=== PATIENT | male | born 1990 | race Caucasian/White ===

== ENCOUNTER 2017-02-19 11:32 | Emergency (ER) | payer SELFPAY ==
--- NOTE | 2017-02-19 13:41 | RADIOLOGY REPORT (SQ) ---
EXAM DESCRIPTION: CHEST PA/LAT COMPLETED DATE/TIME: 02/19/2017 1:29 pm REASON FOR STUDY: sob COMPARISON: None. EXAM PARAMETERS: NUMBER OF VIEWS: two views TECHNIQUE: Digital Frontal and Lateral radiographic views of the chest acquired. RADIATION DOSE: NA LIMITATIONS: none FINDINGS: LUNGS AND PLEURA: No opacities, masses or pneumothorax. No pleural effusion. MEDIASTINUM AND HILAR STRUCTURES: No masses or contour abnormalities. HEART AND VASCULAR STRUCTURES: Heart normal size. No evidence for failure. BONES: No acute findings. HARDWARE: None in the chest. OTHER: No other significant finding. IMPRESSION: NO SIGNIFICANT RADIOGRAPHIC FINDING IN THE CHEST. TECHNICAL DOCUMENTATION: JOB ID: [id number] [employer]- All Rights Reserved
[2017-02-19 13:50] LABS: APPEARANCE,URINE CLEAR; BILIRUBIN,URINE NEGATIVE (NEGATIVE); GLUCOSE, URINE NEGATIVE (NEGATIVE); KETONES,URINE NEGATIVE (NEGATIVE); LEUKOCYTE ESTERASE,URINE NEGATIVE (NEGATIVE); NITRITE,URINE NEGATIVE (NEGATIVE); PROTEIN,URINE NEGATIVE (NEGATIVE); URINE SPECIFIC GRAVITY 1.002; UROBILINOGEN,URINE NEGATIVE mg/dL (<2.0)
[2017-02-19 14:17] LABS: URINE BARBITURATES SCREEN NEGATIVE; URINE METHADONE SCREEN NEGATIVE; URINE OPIATES LOW NEGATIVE; URINE PHENCYCLIDINE SCREEN NEGATIVE
[2017-02-19 14:22] LABS: ABSOLUTE EOSINOPHILS # (AUTO) 0.3 10^3/uL (0.0-0.6); ABSOLUTE LYMPHOCYTES (AUTO) 1.6 10^3/uL (0.5-4.7); ABSOLUTE NEUT (AUTO) 6.4 10^3/uL (1.7-8.2); BASOPHILS % (AUTO) 0.3 % (0-2); EOSINOPHILS % (AUTO) 2.9 % (0-6); HEMATOCRIT 35.9 % (37.9-51.0); HEMOGLOBIN 12.5 g/dL (13.5-17.0); HGB HCT DIFFERENCE 1.6; LYMPHOCYTES % (AUTO) 17.4 % (13-45); MEAN CORPUSCULAR HEMOGLOBIN 33.9 pg (27.0-33.4); MEAN CORPUSCULAR HGB CONC 34.8 g/dL (32.0-36.0); MEAN CORPUSCULAR VOLUME 98 fl (80-97); MONOCYTES % (AUTO) 10.4 % (3-13); RED BLOOD COUNT 3.68 10^6/uL (4.35-5.55); RED CELL DISTRIBUTION WIDTH 14.3 % (11.5-14.0); WHITE BLOOD COUNT 9.3 10^3/uL (4.0-10.5)
[2017-02-19 14:49] LABS: ALANINE AMINOTRANSFERASE 31 U/L (21-72); ALBUMIN 4.7 g/dL (3.5-5.0); ALKALINE PHOSPHATASE 95 U/L (38-126); ANION GAP 14 (5-19); ASPARTATE AMINO TRANSFERASE 19 U/L (17-59); BILIRUBIN,DIRECT 0.4 mg/dL (0.0-0.4); BILIRUBIN,TOTAL 0.5 mg/dL (0.2-1.3); BLOOD UREA NITROGEN 7 mg/dL (7-20); CALCIUM 10.2 mg/dL (8.4-10.2); CARBON DIOXIDE 24 mmol/L (22-30); CHLORIDE 105 mmol/L (98-107); CREATINE KINASE 93 U/L (55-170); GLUCOSE 100 mg/dL (75-110); POTASSIUM 4.3 mmol/L (3.6-5.0); SODIUM 143.2 mmol/L (137-145); TOTAL PROTEIN 7.9 g/dL (6.3-8.2)
[2017-02-19 15:27] LABS: CREATINE KINASE MB 1.14 ng/mL (<4.55)
[2017-02-19 15:28] LABS: TROPONIN I < 0.012 ng/mL
--- NOTE | 2017-02-19 15:41 | ER Document Report ---
ED General - General Chief Complaint: Chest Pain Stated Complaint: CHEST PAIN Time Seen by Provider: 02/19/17 12:42 TRAVEL OUTSIDE OF THE U.S. IN LAST 30 DAYS: No - HPI Patient complains to provider of: Chest pain right-sided Notes: Patient coming in for evaluation chest pain mostly substernal right-sided states ongoing for the last 24 hours. Denies any trauma denies any fevers chills nausea vomiting patient is a smoker. Patient denies any recent travel. Patient is holding the middle and right side of his chest upon my evaluation. Denies any past medical history. - Related Data Allergies/Adverse Reactions: No Known Allergies Allergy (Verified 02/19/17 15:43) Past Medical History - Social History Smoking Status: Current Every Day Smoker Chew tobacco use (# tins/day): No Frequency of alcohol use: Rare Drug Abuse: None Family History: Reviewed & Not Pertinent Renal/ Medical History: Denies: Hx Peritoneal Dialysis Surgical Hx: Negative - Immunizations Hx Diphtheria, Pertussis, Tetanus Vaccination: No Review of Systems - Review of Systems Constitutional: No symptoms reported EENT: No symptoms reported Cardiovascular: Chest pain Respiratory: No symptoms reported Gastrointestinal: No symptoms reported Genitourinary: No symptoms reported Male Genitourinary: No symptoms reported Musculoskeletal: No symptoms reported Skin: No symptoms reported Hematologic/Lymphatic: No symptoms reported Neurological/Psychological: No symptoms reported -: Yes All other systems reviewed and negative Physical Exam - Vital signs Vitals: Temp Pulse Resp BP Pulse Ox 98.7 F 98 18 112/73 95 02/19/17 11:37 02/19/17 11:37 02/19/17 11:37 02/19/17 11:37 02/19/17 11:37 Interpretation: Normal - General General appearance: Appears well, Alert - HEENT Head: Normocephalic, Atraumatic Eyes: Normal Pupils: PERRL - Respiratory Respiratory status: No respiratory distress Chest status: Nontender Breath sounds: Normal Chest palpation: Normal - Cardiovascular Rhythm: Regular Heart sounds: Normal auscultation Murmur: No - Abdominal Inspection: Normal Distension: No distension Bowel sounds: Normal Tenderness: Nontender Organomegaly: No organomegaly - Back Back: Normal, Nontender - Extremities General upper extremity: Normal inspection, Nontender, Normal color, Normal ROM , Normal temperature General lower extremity: Normal inspection, Nontender, Normal color, Normal ROM , Normal temperature, Normal weight bearing. No: Mark's sign - Neurological Neuro grossly intact: Yes Cognition: Normal Orientation: AAOx4 Martha Coma Scale Eye Opening: Spontaneous [place] Coma Scale Verbal: Oriented [place] Coma Scale Motor: Obeys Commands Martha Coma Scale Total: 15 Speech: Normal Motor strength normal: LUE, RUE, LLE, RLE Sensory: Normal - Psychological Associated symptoms: Normal affect, Normal mood - Skin Skin Temperature: Warm Skin Moisture: Dry Skin Color: Normal Course - Re-evaluation Re-evalutation: 02/19/17 20:03 The patient has atypical chest pain as the patient's chest pain is not suggestive of pulmonary embolus, cardiac ischemia, aortic dissection, or other serious etiology. Given the extremely low risk of these diagnoses further testing and evaluation for these possibilities does not appear to be indicated at this time. The patient has been instructed to return if the symptoms worsen or change in any way. More consistent with chest wall pain. Will discharge patient home - Vital Signs Vital signs: Temp Pulse Resp BP Pulse Ox 97.3 F 84 20 112/71 94 02/19/17 15:43 02/19/17 15:43 02/19/17 15:43 02/19/17 15:43 02/19/17 15:43 - Laboratory Result Diagrams: 02/19/17 14:05 02/19/17 14:05 Laboratory results interpreted by me: 02/19/17 14:05 RBC 3.68 L Hgb 12.5 L Hct 35.9 L MCV 98 H MCH 33.9 H RDW 14.3 H Procedures - Additional Procedures Ultrasound blood draw Notes: 02/19/17 20:04 Using ultrasound vein was found antecubital region of the left arm cleaned with alcohol with successful blood draw with a 22-gauge butterfly needle Discharge - Discharge Clinical Impression: Chest wall pain Condition: Good Disposition: HOME, SELF-CARE Instructions: Anti-Inflammatory Medication ([facility]), Chest Wall Pain ([facility]), Reflux Disease (GERD) ([facility]) Additional Instructions: Evaluation does not show any signs of significant pathology. There is no signs of pneumonia heart damage or significant infection. Please follow-up with your primary care physician. Return to ER symptoms worsen. Take medications as prescribed. Prescriptions: Ketorolac Tromethamine [Toradol 10 mg Tablet] 10 mg PO Q8HP PRN #30 tablet PRN Reason:
[2017-02-19 15:45] VITALS: BP 112/71
--- NOTE | 2017-02-19 20:18 | EKG REPORT ---
SEVERITY:- OTHERWISE NORMAL ECG - SINUS TACHYCARDIA : Confirmed by: Roya Layne MD 19-Feb-2017 20:16:59
== END 2017-02-19 15:57 | disposition home or self-care (01) ==
LOC: ER 11:32
DX: R07.89 Other chest pain (principal); F17.200 Nicotine dependence, unspecified, uncomplicated
CPT/HCPCS: 36415; 71020; 80053; 80307; 81001; 82550; 82553; 84484; 85025; 93005; 93010; 99285

== ENCOUNTER 2017-09-22 16:41 | Emergency (ER) | payer SELFPAY ==
[2017-09-22 16:52] VITALS: BP 108/66
[2017-09-22] MEDS ORDERED: KETOROLAC TROMETHAMINE 60 MG/2 ML SDV IM ONE (17:25)
--- NOTE | 2017-09-22 17:40 | ER Document Report ---
ED Extremity Problem, Upper - General Chief Complaint: R arm pain, no known injury Stated Complaint: RIGHT ARM PAIN Time Seen by Provider: 09/22/17 17:18 Information source: Patient TRAVEL OUTSIDE OF THE [place] IN LAST 30 DAYS: No - HPI Notes: 27-year-old male presents emergency department for evaluation of right shoulder pain 1 week. Patient reports that he has been lifting heavy wood at work. He also reports yesterday that he hit his shoulder on the side of the wall. Patient reports some decreased range of motion secondary to pain. He denies any numbness or weakness to the extremity. He denied any other injuries. He also denied any fever, rash, chest pain, shortness of breath, abdominal pain, nausea, vomiting, diarrhea, dysuria, hematuria. - Related Data Allergies/Adverse Reactions: No Known Allergies Allergy (Verified 02/19/17 15:43) Past Medical History - Social History Smoking Status: Current Every Day Smoker Chew tobacco use (# tins/day): No Frequency of alcohol use: None Drug Abuse: None Family History: Reviewed & Not Pertinent Patient has suicidal ideation: No Patient has homicidal ideation: No Renal/ Medical History: Denies: Hx Peritoneal Dialysis - Immunizations Hx Diphtheria, Pertussis, Tetanus Vaccination: No Physical Exam - Vital signs Vitals: Temp Pulse Resp BP Pulse Ox 99.2 F 84 18 108/66 96 09/22/17 16:50 09/22/17 16:50 09/22/17 16:50 09/22/17 16:50 09/22/17 16:50 - Notes Notes: PHYSICAL EXAMINATION: GENERAL: Well-appearing, well-nourished and in no acute distress. HEAD: Atraumatic, normocephalic. Musculoskeletal: Right shoulder: There is a small abrasion with small area of ecchymosis to the lateral shoulder. No gross deformity, swelling, edema, or hot to the touch. Decreased abduction secondary to pain, otherwise full range of motion. 5\5 bilaterally. Strong radial pulse with brisk capillary refill. Light sensation intact. Distal neurovascular intact. NEUROLOGICAL: Normal gait, balance, speech, and facial symmetry. PSYCH: Normal mood, normal affect. SKIN: Warm, Dry, normal turgor, no rashes or lesions noted. Course - Re-evaluation Re-evalutation: 09/22/17 17:44 Consistent with right shoulder contusion with mild abrasion. No evidence of dislocation or fracture. The likelihood of other entities in the differential is insufficient to justify any further testing for them. I discussed care plan at length with patient. Any and all questions were answered. Patient was given Toradol and felt better. Discharged home with naproxen and sling. Advised patient to follow-up with PCP and take medications as instructed. I also advised him to return immediately to the emergency department for any new, worsening, or concerning symptoms as discussed. He understand and agree with plan. - Vital Signs Vital signs: Temp Pulse Resp BP Pulse Ox 99.2 F 84 18 108/66 96 09/22/17 16:50 09/22/17 16:50 09/22/17 16:50 09/22/17 16:50 09/22/17 16:50 Discharge - Discharge Clinical Impression: Contusion of right shoulder Qualifiers: Encounter type: initial encounter Qualified Code(s): S40.011A - Contusion of right shoulder, initial encounter Condition: Good Disposition: HOME, SELF-CARE Instructions: Family Physicians / Practices, Shoulder Injury ([facility]), Sling as Treatment ([facility]) Additional Instructions: Please follow-up with PCP and take medications as instructed. Return immediately to the emergency department for any new, worsening, or concerning symptoms as discussed. Prescriptions: Naproxen 500 mg PO Q12 #30 tablet
== END 2017-09-22 18:04 | disposition home or self-care (01) ==
LOC: ER 16:41
DX: S40.011A Contusion of right shoulder, initial encounter (principal); M79.601 Pain in right arm; W22.01XA Walked into wall, initial encounter; F17.200 Nicotine dependence, unspecified, uncomplicated
CPT/HCPCS: 99283; 96372; J1885

== ENCOUNTER 2018-08-02 17:48 | Emergency (ER) | payer SELFPAY ==
[2018-08-02] MEDS ORDERED: LIDOCAINE 2% VISCOUS SOLN 20 ML UDCUP PO ONE (19:32)
[2018-08-02] MEDS ORDERED: PENICILLIN V POTASSIUM 500 MG TABLET PO ONE (19:32)
--- NOTE | 2018-08-02 19:39 | ER Document Report ---
ED Oral Problem - General Chief Complaint: Facial Swelling Stated Complaint: FACE SWELLING Time Seen by Provider: 08/02/18 19:19 Mode of Arrival: Ambulatory Information source: Patient Notes: 28-year-old male presents to ED for complaint of dental pain to his left lower jaw with swelling to his left cheek 9-10 days. He states he has had bad teeth for a long time but he noticed some mild swelling to his left cheek with increased pain to his left lower jaw. He is alert oriented respirations regular and unlabored speaking in full sentences. He states his been using Motrin with no improvement. He is in no acute distress at this time. 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 He does smoke a pack a day. TRAVEL OUTSIDE OF THE [place] IN LAST 30 DAYS: No - HPI Patient complains to provider of: Swelling of face, Toothache - It is most likely resorption of a bruise. Is under skin. Both of these conditions are benign, severe pain out of proportion to movement Onset: Other - 9-10 days Onset: Gradual Quality of pain: Achy Severity: Moderate Pain Level: 2 Associated symptoms: Facial pain, Jaw pain, Toothache Worsened by: Cold Relieved by: Nothing Similar symptoms previously: Yes Recently seen / treated by doctor/dentist: No - Related Data Allergies/Adverse Reactions: No Known Allergies Allergy (Verified 08/02/18 18:10) Past Medical History - General Information source: Patient - Social History Smoking Status: Current Every Day Smoker Cigarette use (# per day): Yes - Pack per day Chew tobacco use (# tins/day): No Smoking Education Provided: Yes - Minutes Frequency of alcohol use: None Drug Abuse: None - Dates he has been clean for 5 years Occupation: [employer] Lives with: Family Family History: Reviewed & Not Pertinent Patient has suicidal ideation: No Patient has homicidal ideation: No - Past Medical History Cardiac Medical History: Reports: None Pulmonary Medical History: Reports: None EENT Medical History: Reports: None Neurological Medical History: Reports: None Endocrine Medical History: Reports: None Renal/ Medical History: Reports: None Malignancy Medical History: Reports None GI Medical History: Reports: None Musculoskeletal Medical History: Reports None Skin Medical History: Reports None Psychiatric Medical History: Reports: None Traumatic Medical History: Reports: None Infectious Medical History: Reports: None Surgical Hx: Negative Past Surgical History: Reports: None - Immunizations Hx Diphtheria, Pertussis, Tetanus Vaccination: No Review of Systems - Review of Systems Constitutional: No symptoms reported EENT: Mouth pain, Mouth swelling, Dental problem Cardiovascular: No symptoms reported Respiratory: No symptoms reported Gastrointestinal: No symptoms reported Genitourinary: No symptoms reported Male Genitourinary: No symptoms reported Musculoskeletal: No symptoms reported Skin: No symptoms reported Hematologic/Lymphatic: No symptoms reported Neurological/Psychological: No symptoms reported -: Yes All other systems reviewed and negative Physical Exam - Vital signs Vitals: Temp Pulse Resp BP Pulse Ox 98.4 F 86 14 129/75 H 96 08/02/18 18:19 08/02/18 18:19 08/02/18 18:19 08/02/18 18:19 08/02/18 18:19 Interpretation: Normal - General General appearance: Appears well, Alert - HEENT Head: Normocephalic, Atraumatic Eyes: Normal Pupils: PERRL Ears: Normal External canal: Normal Tympanic membrane: Normal Sinus: Normal Nasal: Swelling, Clear rhinorrhea Mouth/Lips: Caries Mucous membranes: Normal Teeth diagram: 1 - Mild swelling to the left lower gums with most of the teeth missing and those teeth that are present are decayed to the gumline. Minimal swelling to the cheek at the lower jawline. Very minimal lymphadenopathy to the anterior ce rvical chain Pharynx: Normal Neck: Anterior cervical chain, Lymphadenopathy - Respiratory Respiratory status: No respiratory distress Chest status: Nontender Breath sounds: Normal Chest palpation: Normal - Cardiovascular Rhythm: Regular Heart sounds: Normal auscultation Murmur: No - Abdominal Inspection: Normal Distension: No distension Bowel sounds: Normal Tenderness: Nontender Organomegaly: No organomegaly - Back Back: Normal, Nontender - Extremities General upper extremity: Normal inspection, Nontender, Normal color, Normal ROM, Normal temperature General lower extremity: Normal inspection, Nontender, Normal color, Normal ROM, Normal temperature, Normal weight bearing. No: Mark's sign - Neurological Neuro grossly intact: Yes Cognition: Normal Orientation: AAOx4 Martha Coma Scale Eye Opening: Spontaneous [place] Coma Scale Verbal: Oriented [place] Coma Scale Motor: Obeys Commands [place] Coma Scale Total: 15 Speech: Normal Motor strength normal: LUE, RUE, LLE, RLE Sensory: Normal - Psychological Associated symptoms: Normal affect, Normal mood - Skin Skin Temperature: Warm Skin Moisture: Dry Skin Color: Normal Course - Re-evaluation Re-evalutation: 08/02/18 19:45 Presentation is most consistent with likely an infected tooth. Airway is patent. Vitals within normal limits. Patient is able swallow without any difficulty. There is no significant facial swelling. No evidence of Hira angina, apical abscess, or airway obstruction. Patient will be started on antibiotics. I've instructed to follow-up with dentistry as earliest ability for definitive management. At this time will discharge with return precautions and follow-up recommendations. Verbal discharge instructions given a the bedside and opportunity for questions given. Medication warnings reviewed. Patient is in agreement with this plan and has verbalized understanding of return precautions and the need for primary care follow-up in the next 24-72 hours. - Vital Signs Vital signs: Temp Pulse Resp BP Pulse Ox 97.7 F 88 16 116/67 97 08/02/18 19:47 08/02/18 19:47 08/02/18 19:47 08/02/18 19:47 08/02/18 19:47 Discharge - Discharge Clinical Impression: Pain due to dental caries Condition: Stable Disposition: HOME, SELF-CARE Instructions: Family Physicians / Practices Additional Instructions: TOOTHACHE: Your pain is due to dental decay. The tooth must be repaired in order for you to feel better. You will, therefore, be referred to a dentist. We do not have dentists on the staff at [facility]. Severe swelling or drainage around a tooth usually means a dental abscess. This also requires evaluation and treatment by the dentist, but antibiotics may be prescribed while awaiting dental treatment. You should be rechecked immediately if you develop major swelling of the face, increasing pain, a lump in the jaw or gums, headache, difficulty swallowing, or fever. PENICILLIN V K: You have been given a prescription for Penicillin VK. Your physician has determined that this is the best antibiotic for your condition. Pen VK can be taken with meals, however more of the antibiotic gets into the bloodstream if it's taken on an empty stomach. Penicillin usually has no side effects. However, allergy to penicillins is common. If you have had an allergic reaction to any drug of the penicillin family, you should never take any other penicillin. Notify your doctor at once if you develop hives, itching, swelling, faintness, or shortness of breath. Ibuprofen Ibuprofen is an excellent, safe drug for pain control. In addition, it has potent antiinflammatory effects which are beneficial, especially in the treatment of injuries, arthritis, or tendonitis. It's best to take ibuprofen with food. Persons with ulcer disease or allergy to aspirin should notify their physician of this before taking ibuprofen. Take the medication exactly as prescribed. Don't take additional doses unless instructed to do so by your doctor. If you develop wheezing, shortness of breath, hives, faintness, stomach pain, vomiting, or dark black stools, return for re-evaluation at once. Have been given the syringe of viscous lidocaine. Place a small amount on your finger and applied to the area of your gums that is hurting. You could do this every 3-4 hours. Do not do it more often than every 3-4 hours or it will cause excoriation of the skin of your gums. This will actually make more pain. FOLLOW-UP CARE: You have been referred for follow-up care to the dentists listed below. Call the dentists office for an appointment as you were instructed or within the next two days. If you experience worsening or a significant change in your symptoms, notify the physician immediately or return to the Emergency Department at any time for re-evaluation. [facility] [address] [place], [place] [facility] [address] [place] [address] Formerly [facility] [address] [facility] [address] [facility] [address] [facility] [address] [facility]. [email or web address] [facility] [address] [place] [place] [address] Thursday- 8:00am to 5:00 pm Will see patients from other [facility]. Charges based on income and family size and accepts Medicare, Medicaid, and Insurances Will pull molars [facility], [facility]. [id number] Hours of Operation 8:00 am - 4:30 pm weekdays The following dental offices accept Medicaid: [facility] [address] Hernandez Dr[address] Allen Dr. Callejas Wilbert Bedoya, Timothy, and Lupe oral surgery Dr. Najera ([place]) Dr. Zambrano ([place]) [facility] Drs. Bedolla ([place]) Dr. Gómez ([place]) [facility] Dr. Gilbert ([place]) Drs. Ham and ([place]) Medicaid Care Line Prescriptions: Penicillin V Potassium [Penicillin Vk 500 mg Tablet] 500 mg PO BID #20 tablet Forms: Elevated Blood Pressure, Smoking Cessation Education
[2018-08-02 19:48] VITALS: BP 116/67
== END 2018-08-02 19:50 | disposition home or self-care (01) ==
LOC: ER 17:48
DX: K02.9 Dental caries, unspecified (principal); R22.0 Localized swelling, mass and lump, head; F17.210 Nicotine dependence, cigarettes, uncomplicated
CPT/HCPCS: 99283; J3490

== ENCOUNTER 2019-05-08 18:52 | Inpatient (IN) | payer SELFPAY ==
[2019-05-08] MEDS ORDERED: ACETAMINOPHEN 325 MG TABLET PO PRN (19:28)
[2019-05-08] MEDS ORDERED: MAG HYDROX/AL HYDROX/SIMETH SUSP 30 ML UDCUP PO PRN (19:28)
[2019-05-08] MEDS ORDERED: IPRATROPIUM/ALBUTEROL 0.5-2.5 MG/3 ML AMPUL NEB PRN (19:28)
[2019-05-08] MEDS: HEPARIN SOD (PORCINE) 5,000 UNIT/ML 1 ML VIAL SUBCUT SCH (22:59)
[2019-05-09] MEDS: HEPARIN SOD (PORCINE) 5,000 UNIT/ML 1 ML VIAL SUBCUT SCH ×3 (06:50→21:44)
[2019-05-09 08:34] LABS: ABSOLUTE BASOPHILS # (AUTO) 0.1 10^3/uL (0.0-0.2); ABSOLUTE EOSINOPHILS # (AUTO) 0.3 10^3/uL (0.0-0.6); ABSOLUTE MONOCYTES (AUTO) 0.9 10^3/uL (0.1-1.4); ABSOLUTE NEUT (AUTO) 4.6 10^3/uL (1.7-8.2); BASOPHILS % (AUTO) 0.9 % (0-2); EOSINOPHILS % (AUTO) 3.6 % (0-6); HEMATOCRIT 28.8 % (37.9-51.0); HEMOGLOBIN 9.9 g/dL (13.5-17.0); LYMPHOCYTES % (AUTO) 25.1 % (13-45); MEAN CORPUSCULAR HEMOGLOBIN 32.7 pg (27.0-33.4); MEAN CORPUSCULAR HGB CONC 34.5 g/dL (32.0-36.0); MONOCYTES % (AUTO) 11.4 % (3-13); PLATELET COUNT 311 10^3/uL (150-450); RED BLOOD COUNT 3.04 10^6/uL (4.35-5.55); RED CELL DISTRIBUTION WIDTH 16.1 % (11.5-14.0); TOTAL CELLS COUNTED % (AUTO) 100 %; WHITE BLOOD COUNT 7.8 10^3/uL (4.0-10.5)
[2019-05-09 08:47] LABS: MEAN CORPUSCULAR VOLUME 95 fl (80-97)
[2019-05-09 09:10] LABS: ANION GAP 10 (5-19); BLOOD UREA NITROGEN 11 mg/dL (7-20); CALCIUM 10.2 mg/dL (8.4-10.2); CARBON DIOXIDE 28 mmol/L (22-30); CHLORIDE 103 mmol/L (98-107); GLUCOSE 124 mg/dL (75-110); POTASSIUM 4.5 mmol/L (3.6-5.0)
[2019-05-09 09:17] LABS: ERYTHROCYTE SEDIMENTATION RATE 63 mm/hr (0-15)
[2019-05-09] MEDS ORDERED: BUPRENORPHINE HCL SL SCH (10:00)
[2019-05-09] MEDS ORDERED: DOCUSATE SODIUM 100 MG CAPSULE PO SCH (10:00)
[2019-05-09] MEDS ORDERED: DAPTOMYCIN 500 MG in NORMAL SALINE 50 ML IV SCH (10:00)
[2019-05-09] MEDS ORDERED: [UNRECOGNIZED DRUG - OTHER] SL SCH (10:00)
[2019-05-09] MEDS ORDERED: DAPTOMYCIN INJ 500 MG VIAL IV SCH (10:00)
[2019-05-09] MEDS ORDERED: NALOXONE HCL SL SCH (10:00)
[2019-05-09] MEDS: DOCUSATE SODIUM 100 MG CAPSULE PO SCH (10:21)
[2019-05-09] MEDS: DAPTOMYCIN 500 MG in NORMAL SALINE 50 ML IV SCH (15:33)
[2019-05-09] MEDS: SENNOSIDES/DOCUSATE 8.6-50 MG 1 EACH TABLET PO SCH (17:29)
[2019-05-09] MEDS ORDERED: (PENDING PHARMACY ID) (Sennosides [Senna] 2 TAB) PO SCH (18:00)
--- NOTE | 2019-05-09 18:12 | PDOC H&P ---
History of Present Illness Admission Date/PCP: 05/08/19 18:52 Patient complains of: Endocarditis History of Present Illness: PATRICIA LOPEZ is a 29 year old male with history of IV drug abuse who is being transferred back from [facility] to continue treatment for complex MRSA bacteremia with presumed bacterial endocarditis. Patient had initially bee n admitted to the ICU on April 05, 2019 after presenting with encephalopathy with aggressive behavior that required sedation and subsequently intubation. He was spiking fevers at that time. He was then noted to have MRSA bacteremia with with intracranial septic embolism and some subarachnoid hemorrhage. JAVAD showed normal vegetation in the heart but given all the features including septic embo lism, there was concern for infective endocarditis. While patient was here, patient had persistent bacteremia despite treatment with antibiotic therapy. He was subsequently transferred to critical access hospital for close infectious disease supervision. A critical access hospital, repeat JAVAD was done on 04/28/2019 which showed no evidence of vegetation but concerning for flail mitral valve leaflets with plans for cardiovascular surgery after completion of IV antibiotic therapy. Cerebral angiogram was done on 05/03 2019 which showed mycotic intracranial aneurysm. Endovascular embolization of mycotic aneurysm with coiling was done on 05/06/2019. Patient was monitored by the neurosurgeon and subsequently cleared and deemed s table to be transferred back to [facility] o 05/08/19. Patient currently feels well today. Denies any pain or shortness of breath. However patient continues to requested outside to smoke a cigarette. Past Medical History Psychiatric Medical History: Denies: Depression Past Surgical History Past Surgical History: Reports: Other - coiling of intracranial aneurysm Social History Smoking Status: Current Every Day Smoker Cigarettes Packs Per Day: 0.5 Electronic Cigarette use?: No Cigars Per Day: 0 Pipes Per Day: 0 Number of Years Smokin Last Time Smoked: 05/08/2019 Frequency of Alcohol Use: None Hx Recreational Drug Use: No Drugs: Heroin Hx Prescription Drug Abuse: No - Advance Directive Resuscitation Status: Full Code Family History Family History: Reviewed & Not Pertinent Parental Family History Reviewed: Yes Children Family History Reviewed: NA Sibling(s) Family History Reviewed.: NA Medication/Allergy Home Medications: Buprenorphine HCl/Naloxone HCl [Suboxone 8 mg-2 mg Sl Film] 1.5 film SL DAILY 04/05/19 Acetaminophen [Tylenol] 650 mg PO Q4HP PRN 01/05/20 Docusate Sodium [Colace 100 mg Capsule] 100 mg PO DAILY 05/08/19 Ondansetron HCl/Pf [Zofran Inj/Pf 4 mg/2 ml Sdv] 4 mg IV Q6HP PRN 05/08/19 Ibuprofen 400 mg PO Q4HP PRN 05/09/19 Allergies/Adverse Reactions: No Known Allergies Allergy (Verified 05/08/19 20:04) Review of Systems Constitutional: ABSENT: chills, fatigue Cardiovascular: ABSENT: chest pain Respiratory: ABSENT: cough, dyspnea Gastrointestinal: ABSENT: abdominal pain, vomiting Genitourinary: ABSENT: dysuria Integumentary: ABSENT: diaphoresis Neurological: ABSENT: confusion Psychiatric: ABSENT: anxiety Physical Exam Vital Signs: Temp Pulse Resp BP Pulse Ox 98.7 F 63 14 100/73 98 05/09/19 11:18 05/09/19 12:26 05/09/19 12:26 05/09/19 11:18 05/09/19 12:26 Intake & Output 05/08/19 05/09/19 05/10/19 06:59 06:59 06:59 Intake Total 50 Balance 50 Weight 59 kg 59 kg General appearance: PRESENT: no acute distress, cooperative Neck exam: ABSENT: JVD Respiratory exam: PRESENT: clear to auscultation bismark, unlabored. ABSENT: tachypnea, wheezes Cardiovascular exam: PRESENT: RRR, +S1, +S2. ABSENT: tachycardia GI/Abdominal exam: PRESENT: normal bowel sounds, soft. ABSENT: rebound, rigid, tenderness Neurological exam: PRESENT: alert, awake, oriented to person, oriented to place, oriented to time, oriented to situation Results Laboratory Results: 05/09/19 08:20 05/09/19 08:20 05/09/19 05/09/19 05/09/19 06:35 06:35 08:20 WBC Cancelled RBC Cancelled Hgb Cancelled Hct Cancelled MCV Cancelled MCH Cancelled MCHC Cancelled RDW Cancelled Plt Count Cancelled Seg Neutrophils % Cancelled Sodium Cancelled 140.5 Potassium Cancelled 4.5 Chloride Cancelled 103 Carbon Dioxide Cancelled 28 Anion Gap Cancelled 10 BUN Cancelled 11 Creatinine Cancelled 0.83 Est GFR ( Amer) Cancelled > 60 Est GFR (Non-Af Amer) Cancelled Glucose Cancelled 124 H Calcium Cancelled 10.2 05/09/19 08:20 WBC 7.8 RBC 3.04 L Hgb 9.9 L Hct 28.8 L MCV 95 D MCH 32.7 MCHC 34.5 RDW 16.1 H Plt Count 311 Seg Neutrophils % 59.0 Sodium Potassium Chloride Carbon Dioxide Anion Gap BUN Creatinine Est GFR ( Amer) Est GFR (Non-Af Amer) Glucose Calcium Assessment and Plan - Diagnosis (1) Infective endocarditis Qualifiers: Infective endocarditis organism: bacterial Chronicity: acute Qualified Code(s): I33.0 - Acute and subacute infective endocarditis Is this a current diagnosis for this admission?: Yes Plan: Complex MRSA bacteremia meeting [place] criteria for infective endocarditis though no heart vegetations were ever noted. Returned from [facility] to complete antibiotic course continue with daptomycin. Last negative blood culture at [facility] were on 2018 with plan to continue daptomycin until 05/29/2019 Monitor CK levels Follow-up blood cultures done here Follow-up with Dr. Cardenas after discharge (2) Mitral regurgitation Qualifiers: Cardiac valve disease etiology: etiology unspecified Qualified Code(s): I34.0 - Nonrheumatic mitral (valve) insufficiency Is this a current diagnosis for this admission?: Yes Plan: JAVAD at [facility] on 04/28/2019 revealed flail mitral valve which patient is to follow-up with cardiothoracic surgery for replacement after conclusion of IV antibiotics (3) Mycotic aneurysm Is this a current diagnosis for this admission?: Yes Plan: Patient is status post endovascular embolization and coiling of intracranial mycotic aneurysm done on 05/06/2019 Patient will need to follow-up with neurosurgery at [facility] after completion of IV antibiotics (4) History of heroin abuse Is this a current diagnosis for this admission?: Yes Plan: Continue Suboxone - Time Time Spent with patient: 35 or more minutes
[2019-05-09] MEDS ORDERED: NICOTINE 21 MG/24 HR PATCH.TD24 TD PRN (18:13)
--- NOTE | 2019-05-09 18:50 | Progress Note ---
Provider Note Provider Note: Patient seen and is stable today. Requesting to go outside to smoke tobacco. I have informed patient that he needs to be escorted and will escort him tomorrow. Vital signs are stable at this time. Lungs are clear bilaterally. Assessment and plan: Complicated MRSA with infective endocarditis-continue daptomycin. Nicotine replacement for tobacco dependence.
[2019-05-10] MEDS: HEPARIN SOD (PORCINE) 5,000 UNIT/ML 1 ML VIAL SUBCUT SCH ×3 (06:54→21:29)
[2019-05-10] MEDS: DOCUSATE SODIUM 100 MG CAPSULE PO SCH (10:03)
[2019-05-10] MEDS: DAPTOMYCIN 500 MG in NORMAL SALINE 50 ML IV SCH (10:04)
--- NOTE | 2019-05-10 14:39 | PDOC PROGRESS REPORT ---
Subjective Progress Note for:: 05/10/19 Subjective:: Patient has no complaints today feels well. Reason For Visit: ENDOCARDITITS Physical Exam Vital Signs: Temp Pulse Resp BP Pulse Ox 98.6 F 98 18 109/69 98 05/10/19 11:49 05/10/19 11:49 05/10/19 11:49 05/10/19 11:49 05/10/19 11:49 Intake & Output 05/09/19 05/10/19 05/11/19 06:59 06:59 06:59 Intake Total 2210 50 Balance 2210 50 Weight 59 kg 59 kg General appearance: PRESENT: no acute distress, cooperative Cardiovascular exam: PRESENT: +S1, +S2 GI/Abdominal exam: PRESENT: soft. ABSENT: tenderness Musculoskeletal exam: PRESENT: ambulatory Neurological exam: PRESENT: alert, awake, oriented to person, oriented to place, oriented to time Results Laboratory Results: 05/09/19 08:20 05/09/19 08:20 Assessment and Plan - Diagnosis (1) Infective endocarditis Qualifiers: Infective endocarditis organism: bacterial Chronicity: acute Qualified Code(s): I33.0 - Acute and subacute infective endocarditis Is this a current diagnosis for this admission?: Yes Plan: Complex MRSA bacteremia meeting [place] criteria for infective endocarditis though no heart vegetations were ever noted. Returned from [facility] to complete antibiotic course continue with daptomycin. Last negative blood culture at [facility] were on 04/18/2019 with plan to continue daptomycin until 05/29/2019 Monitor CK levels weekly Follow-up blood cultures done here Follow-up with Dr. Cardenas after discharge (2) Mitral regurgitation Qualifiers: Cardiac valve disease etiology: etiology unspecified Qualified Code(s): I34.0 - Nonrheumatic mitral (valve) insufficiency Is this a current diagnosis for this admission?: Yes Plan: JAVDA at [facility] on 04/28/2019 revealed flail mitral valve which patient is to fo llow-up with cardiothoracic surgery for replacement after conclusion of IV antibiotics (3) Mycotic aneurysm Is this a current diagnosis for this admission?: Yes Plan: Patient is status post endovascular embolization and coiling of intracranial mycotic aneurysm done on 05/06/2019 Patient will need to follow-up with neurosurgery at [facility] after completion of IV antibiotics (4) History of heroin abuse Is this a current diagnosis for this admission?: Yes Plan: Continue Suboxone (5) Tobacco abuse Is this a current diagnosis for this admission?: Yes Plan: Nicotine replacement therapy - Time Time Spent with patient: Less than 15 minutes
[2019-05-10] MEDS: SENNOSIDES/DOCUSATE 8.6-50 MG 1 EACH TABLET PO SCH (17:22)
[2019-05-11] MEDS: HEPARIN SOD (PORCINE) 5,000 UNIT/ML 1 ML VIAL SUBCUT SCH ×3 (05:03→21:05)
[2019-05-11] MEDS: DOCUSATE SODIUM 100 MG CAPSULE PO SCH (10:13)
[2019-05-11] MEDS: DAPTOMYCIN 500 MG in NORMAL SALINE 50 ML IV SCH (10:13)
--- NOTE | 2019-05-11 16:53 | PDOC PROGRESS REPORT ---
Subjective Progress Note for:: 05/11/19 Subjective:: PATRICIA LOPEZ is a 29 year old male with history of IV drug abuse who is being transferred back from [facility] to continue treatment for complex MRSA bacteremia with presumed bacterial endocarditis. Patient had initially been admitted to the ICU on April 05, 2019 after presenting with encephalopathy with aggressive behavior that required sedation and subsequently intubation. He was spiking fevers at that time. He was then noted to have MRSA bacteremia with with intracranial septic embolism and some subarachnoid hemorrhage. JAVAD showed normal vegetation in the heart but given all the features including septic embolism, there was concern for infective endocarditis. While patient was here, patient had persistent bacteremia despite treatment with antibiotic therapy. He was subsequently transferred to [facility] for close infectious disease supervision. A [facility], repeat JAVAD was done on 04/28/2019 which showed no evidence of vegetation but concerning for flail mitral valve leaflets with plans for cardiovascular surgery after completion of IV antibiotic therapy. Cerebral angiogram was done on 05/03 2019 which showed mycotic intracranial aneurysm. Endovascular embolization of mycotic aneurysm with coiling was done on 05/06/2019. Patient was monitored by the neurosurgeon and subsequently cleared and deemed stable to be transferred back to [facility] o 05/08/19. 05/11/2019. No acute events overnight. Patient very upset about the fact that he is not able to walk outside the hospital for smoking. Patient was offered nicotine patch however he refused otherwise denies any fever, chills, nausea, vomiting, diarrhea, constipation or any urinary symptoms. Reason For Visit: ENDOCARDITITS Physical Exam Vital Signs: Temp Pulse Resp BP Pulse Ox 98.9 F 108 H 16 106/66 98 05/11/19 15:01 05/11/19 15:01 05/11/19 15:01 05/11/19 15:01 05/11/19 15:01 Intake & Output 05/10/19 05/11/19 05/12/19 06:59 06:59 06:59 Intake Total 2210 2437 848 Balance 2210 2437 848 Weight 59 kg 59.4 kg General appearance: PRESENT: no acute distress, well-developed, well-nourished Head exam: PRESENT: atraumatic, normocephalic Neck exam: ABSENT: carotid bruit, JVD, lymphadenopathy, thyromegaly Respiratory exam: PRESENT: clear to auscultation bismark. ABSENT: rales, rhonchi, wheezes Cardiovascular exam: PRESENT: RRR, systolic murmur. ABSENT: diastolic murmur, rubs GI/Abdominal exam: PRESENT: normal bowel sounds, soft. ABSENT: distended, guarding, mass, organolmegaly, rebound, tenderness Neurological exam: PRESENT: alert, awake, oriented to person, oriented to place, oriented to time, oriented to situation, CN II-XII grossly intact. ABSENT: motor sensory deficit Results Laboratory Results: 05/09/19 08:20 05/09/19 08:20 Assessment and Plan - Diagnosis (1) Infective endocarditis Qualifiers: Infective endocarditis organism: bacterial Chronicity: acute Qualified Code(s): I33.0 - Acute and subacute infective endocarditis Is this a current diagnosis for this admission?: Yes Plan: Complex MRSA bacteremia meeting [place] criteria for infective endocarditis though no heart vegetations were ever noted. Returned from [facility] to complete antibiotic course continue with daptomycin. Last negative blood culture at [facility] were on 04/18/2019 with plan to continue daptomycin until 05/29/2019 Monitor CK levels weekly Follow-up blood cultures done here Follow-up with Dr. Cardenas after discharge (2) Mitral regurgitation Qualifiers: Cardiac valve disease etiology: etiology unspecified Qualified Code(s): I34.0 - Nonrheumatic mitral (valve) insufficiency Is this a current diagnosis for this admission?: Yes Plan: JAVAD at [facility] on 04/28/2019 revealed flail mitral valve which patient is to follow-up with cardiothoracic surgery for replacement after conclusion of IV antibiotics (3) History of heroin abuse Is this a current diagnosis for this admission?: Yes Plan: Continue Suboxone (4) Mycotic aneurysm Is this a current diagnosis for this admission?: Yes Plan: Patient is status post endovascular embolization and coiling of intracranial mycotic aneurysm done on 05/06/2019 Patient will need to follow-up with neurosurgery at [facility] after completion of IV antibiotics (5) Tobacco abuse Is this a current diagnosis for this admission?: Yes Plan: Nicotine replacement therapy
[2019-05-11] MEDS: SENNOSIDES/DOCUSATE 8.6-50 MG 1 EACH TABLET PO SCH (17:05)
[2019-05-12] MEDS: HEPARIN SOD (PORCINE) 5,000 UNIT/ML 1 ML VIAL SUBCUT SCH (05:51)
[2019-05-12] MEDS: DAPTOMYCIN 500 MG in NORMAL SALINE 50 ML IV SCH (10:02)
[2019-05-12] MEDS: DOCUSATE SODIUM 100 MG CAPSULE PO SCH (10:20)
[2019-05-12 11:44] VITALS: BP 115/67
--- NOTE | 2019-05-12 18:11 | Left Against Medical Advice ---
Against Medical Advice Admission Date/Time: 05/08/19 18:52 Primary Care Provider: Date of Patient Emigration: 05/12/19 - Diagnosis: (1) Infective endocarditis Is this a current diagnosis for this admission?: Yes (2) Mitral regurgitation Is this a current diagnosis for this admission?: Yes (3) History of heroin abuse Is this a current diagnosis for this admission?: Yes (4) Mycotic aneurysm Is this a current diagnosis for this admission?: Yes (5) Tobacco abuse Is this a current diagnosis for this admission?: Yes - Summary: Summary: Please see Admission and Progress Notes as well. PATRICIA LOPEZ is a 29 M, who LEFT AGAINST MEDICAL ADVICE. The Patient was admitted on 05/08/19 18:52. PATRICIA LOPEZ is a 29 year old male with history of IV drug abuse who is being transferred back from [facility] to continue treatment for complex MRSA bacteremia with presumed bacterial endocarditis. Patient had initially been admitted to the ICU on April 05, 2019 after presenting with encephalopathy with aggressive behavior that required sedation and subsequently intubation. He was spiking fevers at that time. He was then noted to have MRSA bacteremia with with intracranial septic embolism and some subarachnoid hem orrhage. JAVAD showed normal vegetation in the heart but given all the features including septic embolism, there was concern for infective endocarditis. While patient was here, patient had persistent bacteremia despite treatment with antibiotic therapy. He was subsequently transferred to [facility] for close infectious disease supervision. A [facility], repeat JAVAD was done on 04/28/2019 which showed no evidence of vegetation but concerning for flail mitral valve leaflets with plans for cardiovascular surgery after completion of IV antibiotic therapy. Cerebral angiogram was done on 05/03 2019 which showed mycotic intracranial aneurysm. Endovascular embolization of mycotic aneurysm with coiling was done on 05/06/2019. Patient was monitored by the neurosurgeon and subsequently cleared and deemed stable to be transferred back to [facility] o 05/08/19. (1) Infective endocarditis Patient consistently asking to be allowed to go outside the hospital to smoke bu t as per hospital policy cannot smoke while inpatient. This was confirmed by nursing supervisor plastics Marie Lomas. Apparently patient had asked the previous attending if he could go outside smoking and he had told him that he will be okay with it if it was not against hospital policy and was okay with the nursing staff. As per nursing staff and nursing supervisor plastics this is a non-smoking hospital and they do not have enough resources and the staff to accompany patient outside for his smoking as patient. Apparently patient likes to go outside to smoke several times a day. Patient admitted to have been smoking in his room. Patient was repeatedly encouraged to use NicoDerm patch instead but he consistently refused. Patient was extensively advised and encouraged to stay in the hospital until completion of his antibiotics however he left AMA stating that he is aware of the risks of not getting his treatment and is stating that he will leave AMA and go to the hospital where they would let him smoke. Patient mentioned that he will be going back to [facility] as they were letting him smoke. Complex MRSA bacteremia meeting [place] criteria for infective endocarditis though no heart vegetations were ever noted. Returned from [facility] to complete antibiotic course Continued with daptomycin. Last negative blood culture at [facility] were on 04/18/2019 with plan to continue daptomycin until 05/29/2019 (2) Mitral regurgitation JAVAD at [facility] on 04/28/2019 revealed flail mitral valve which patient is to follow-up with cardiothoracic surgery for replacement after conclusion of IV antibiotics (3) History of heroin abuse Continue Suboxone (4) Mycotic aneurysm Patient is status post endovascular embolization and coiling of intracranial mycotic aneurysm done on 05/06/2019 Patient will need to follow-up with neurosurgery at [facility] after completion of IV antibiotics (5) Tobacco abuse Smoking in his room. Consistently refusing NicoDerm patch placement. Would like to be allowed to leave the hospital to smoke unfortunately as per hospital policy patient was allowed to smoke while inpatient.
== END 2019-05-12 12:13 | disposition left against medical advice (07) | DRG 290 ==
LOC: 4W 18:52
PROVIDERS: ADMIT Internal Medicine; ATTEND Internal Medicine
DX: I33.0 Acute and subacute infective endocarditis (principal); I34.0 Nonrheumatic mitral (valve) insufficiency; F11.11 Opioid abuse, in remission; I72.9 Aneurysm of unspecified site; F17.210 Nicotine dependence, cigarettes, uncomplicated; Z86.14 Personal history of Methicillin resistant Staphylococcus aureus infection; Z79.899 Other long term (current) drug therapy
CPT/HCPCS: 36415; 80048; 85025; 85652; 87040; J0878

== ENCOUNTER 2019-06-21 22:28 | Emergency (ER) | payer SELFPAY ==
[2019-06-22 02:11] LABS: ABSOLUTE BASOPHILS # (AUTO) 0.1 10^3/uL (0.0-0.2); ABSOLUTE EOSINOPHILS # (AUTO) 0.8 10^3/uL (0.0-0.6); ABSOLUTE LYMPHOCYTES (AUTO) 1.9 10^3/uL (0.5-4.7); ABSOLUTE MONOCYTES (AUTO) 0.9 10^3/uL (0.1-1.4); EOSINOPHILS % (AUTO) 12.4 % (0-6); HEMATOCRIT 35.1 % (37.9-51.0); HEMOGLOBIN 12.3 g/dL (13.5-17.0); LYMPHOCYTES % (AUTO) 28.6 % (13-45); MEAN CORPUSCULAR HEMOGLOBIN 32.1 pg (27.0-33.4); MEAN CORPUSCULAR HGB CONC 35.2 g/dL (32.0-36.0); MEAN CORPUSCULAR VOLUME 91 fl (80-97); MONOCYTES % (AUTO) 12.9 % (3-13); PLATELET COUNT 242 10^3/uL (150-450); RED BLOOD COUNT 3.84 10^6/uL (4.35-5.55); RED CELL DISTRIBUTION WIDTH 13.9 % (11.5-14.0); SEGMENTED NEUTROPHILS % (AUTO) 45.1 % (42-78); TOTAL CELLS COUNTED % (AUTO) 100 %; WHITE BLOOD COUNT 6.6 10^3/uL (4.0-10.5)
[2019-06-22 02:26] LABS: ALBUMIN 4.9 g/dL (3.5-5.0); ALKALINE PHOSPHATASE 96 U/L (38-126); ANION GAP 13 (5-19); ASPARTATE AMINO TRANSFERASE 35 U/L (17-59); BILIRUBIN,TOTAL 0.4 mg/dL (0.2-1.3); BLOOD UREA NITROGEN 9 mg/dL (7-20); CALCIUM 10.1 mg/dL (8.4-10.2); CARBON DIOXIDE 25 mmol/L (22-30); CHLORIDE 102 mmol/L (98-107); CREATINE KINASE 56 U/L (55-170); GLUCOSE 107 mg/dL (75-110); POTASSIUM 4.1 mmol/L (3.6-5.0); TOTAL PROTEIN 8.7 g/dL (6.3-8.2)
[2019-06-22 02:38] LABS: CREATINE KINASE MB 0.82 ng/mL (<4.55); TROPONIN I 0.013 ng/mL
[2019-06-22 02:48] VITALS: BP 120/78
--- NOTE | 2019-06-22 22:31 | EKG REPORT ---
SEVERITY:- ABNORMAL ECG - SINUS RHYTHM PROBABLE LEFT VENTRICULAR HYPERTROPHY ST ELEVATION SUGGESTS PERICARDITIS : Confirmed by: Lester Bettencourt 22-Jun-2019 22:30:27
== END 2019-06-22 03:57 | disposition left against medical advice (07) ==
LOC: ER 22:28
DX: Z53.21 Procedure and treatment not carried out due to patient leaving prior to being seen by health care provider (principal)

== ENCOUNTER 2019-07-25 11:18 | Emergency (ER) | payer SELFPAY ==
--- NOTE | 2019-07-25 11:27 | ER Document Report ---
ED Medical Screen (RME) - General Chief Complaint: Back Pain Stated Complaint: BACK PAIN Time Seen by Provider: 07/25/19 11:20 Information source: Patient TRAVEL OUTSIDE OF THE [place] IN LAST 30 DAYS: No - HPI Onset: Other Notes: 07/25/19 11:26 This 29-year-old male presented emergency room today stating he has had lower back discomfort for about 9 days he did state that he recently had heart surgery. He has no numbness or tingling no loss of bowel or bladder function no saddle anesthesia he is ambulatory with a rhythmic and steady gait concerning fe ature is that he has a heart rate of 116 - Related Data Allergies/Adverse Reactions: No Known Allergies Allergy (Verified 07/25/19 11:24) Past Medical History Renal/ Medical History: Denies: Hx Peritoneal Dialysis Psychiatric Medical History: Denies: Hx Depression Past Surgical History: Reports: Other - coiling of intracranial aneurysm - Immunizations Hx Diphtheria, Pertussis, Tetanus Vaccination: No Physical Exam - Vital signs Vitals: Temp Pulse Resp BP Pulse Ox 98.2 F 114 H 18 139/86 H 99 07/25/19 11:22 07/25/19 11:22 07/25/19 11:22 07/25/19 11:22 07/25/19 11:22 Course - Vital Signs Vital signs: Temp Pulse Resp BP Pulse Ox 98.2 F 114 H 18 139/86 H 99 07/25/19 11:22 07/25/19 11:22 07/25/19 11:22 07/25/19 11:22 07/25/19 11:22
--- NOTE | 2019-07-25 11:53 | RADIOLOGY REPORT (SQ) ---
EXAM DESCRIPTION: T SPINE AP/LAT COMPLETED DATE/TIME: 07/25/2019 11:42 am REASON FOR STUDY: pain COMPARISON: None. NUMBER OF VIEWS: Two views. TECHNIQUE: AP and lateral radiographic images acquired of the thoracic spine. LIMITATIONS: None. FINDINGS: MINERALIZATION: Normal. ALIGNMENT: Minimal scoliosis VERTEBRAE: No fracture or bone lesion. Maintained height, normal segmentation. DISCS: No significant loss of height or significant narrowing. No large osteophytes. HARDWARE: None in the spine. MEDIASTINUM AND SOFT TISSUES: Normal heart size and aortic contour. No soft tissue abnormality. VISUALIZED LUNG GUPTA: Clear. OTHER: No other significant finding. IMPRESSION: Minimal scoliosis. TECHNICAL DOCUMENTATION: JOB ID: [id number] [employer]- All Rights Reserved Reading location - IP/workstation name: [email or web address]
[2019-07-25 12:31] LABS: APPEARANCE,URINE CLEAR; BILIRUBIN,URINE NEGATIVE (NEGATIVE); COLOR,URINE YELLOW; GLUCOSE, URINE NEGATIVE (NEGATIVE); KETONES,URINE NEGATIVE (NEGATIVE); LEUKOCYTE ESTERASE,URINE NEGATIVE (NEGATIVE); NITRITE,URINE NEGATIVE (NEGATIVE); PROTEIN,URINE NEGATIVE (NEGATIVE); URINE SPECIFIC GRAVITY 1.016; UROBILINOGEN,URINE NEGATIVE mg/dL (<2.0)
[2019-07-25] MEDS ORDERED: KETOROLAC TROMETHAMINE 60 MG/2 ML SDV IM ONE (12:37)
--- NOTE | 2019-07-25 13:03 | ER Document Report ---
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 He has a h/o chronic back and had been taking ibuprofen and is now out of that and taking tylenol without relief of pain. No fever or chills and tells me no relapse into IVDA. Seen in the front of the ED and orders placed. No bowel or bladder difficulty. Stiff in the am and back pain in the lower back is somewhat better after he is up and moving. No injury. TRAVEL OUTSIDE OF THE [place] IN LAST 30 DAYS: No - Related Data Allergies/Adverse Reactions: No Known Allergies Allergy (Verified 07/25/19 11:24) Past Medical History - General Information source: Patient - Social History Smoking Status: Current Every Day Smoker Family History: Reviewed & Not Pertinent Patient has suicidal ideation: No Patient has homicidal ideation: No Renal/ Medical History: Denies: Hx Peritoneal Dialysis Psychiatric Medical History: Denies: Hx Depression Past Surgical History: Reports: Hx Cardiac Surgery - valve replacment, Other - coiling of intracranial aneurysm - Immunizations Hx Diphtheria, Pertussis, Tetanus Vaccination: No Review of Systems - Review of Systems Constitutional: No symptoms reported EENT: No symptoms reported Cardiovascular: No symptoms reported Respiratory: No symptoms reported Gastrointestinal: No symptoms reported Genitourinary: No symptoms reported Male Genitourinary: No symptoms reported Musculoskeletal: See HPI, Back pain Skin: No symptoms reported Hematologic/Lymphatic: No symptoms reported Neurological/Psychological: No symptoms reported Physical Exam - Vital signs Vitals: Temp Pulse Resp BP Pulse Ox 98.2 F 114 H 18 139/86 H 99 07/25/19 11:22 07/25/19 11:22 07/25/19 11:22 07/25/19 11:22 07/25/19 11:22 Interpretation: Normal - General General appearance: Appears well, Alert - HEENT Head: Normocephalic, Atraumatic Eyes: Normal Pupils: PERRL - Respiratory Respiratory status: No respiratory distress Chest status: Nontender Breath sounds: Normal Chest palpation: Normal - Cardiovascular Rhythm: Regular Heart sounds: Normal auscultation Murmur: No - Abdominal Inspection: Normal Distension: No distension Bowel sounds: Normal Tenderness: Nontender Organomegaly: No organomegaly - Back Back: Normal, Tender - ttp paraspinally low back. No midline pain. No parsthesia. - Extremities General upper extremity: Normal inspection, Nontender, Normal color, Normal ROM, Normal temperature General lower extremity: Normal inspection, Nontender, Normal color, Normal ROM, Normal temperature, Normal weight bearing. No: Mark's sign - Neurological Neuro grossly intact: Yes Cognition: Normal Orientation: AAOx4 Martha Coma Scale Eye Opening: Spontaneous [place] Coma Scale Verbal: Oriented Martha Coma Scale Motor: Obeys Commands Martha Coma Scale Total: 15 Speech: Normal Motor strength normal: LUE, RUE, LLE, RLE Sensory: Normal - Psychological Associated symptoms: Normal affect, Normal mood - Skin Skin Temperature: Warm Skin Moisture: Dry Skin Color: Normal Course - Re-evaluation Re-evalutation: 07/25/19 12:57 MDM 29 year old with previous high risk behavior is here with back pain. No fever and no midline back pain. No external signs of IVDA recently and he expresses no desire for narcotics. He has no parathesia here and no bowel or bladder difficulty. We discussed concerning signs - fever, pain that does not worsen with medicine, any bowel or bladder dysfunction and midline back pain and returning here for those and he expressed understanding. Additionally he tells me previously he had been on Gabapentin with some relief and no longer is on that. All of these together plus the fact the pain gets better with movement makes I believe the likelyhood of epidural abcess or another ominous of this gentleman's back pain unlikely. He will follow up locally he tells me. Heart rate with me sitting in the room was mid 90's, not over 100. - Vital Signs Vital signs: Temp Pulse Resp BP Pulse Ox 98.2 F 114 H 14 101/72 99 07/25/19 11:22 07/25/19 11:22 07/25/19 13:27 07/25/19 13:27 07/25/19 13:27 - Laboratory Laboratory results interpreted by me: 07/25/19 11:50 Urine Blood MODERATE H Discharge - Discharge Clinical Impression: Back pain Qualifiers: Back pain location: low back pain Chronicity: chronic Back pain laterality: bilateral Sciatica presence: without sciatica Qualified Code(s): M54.5 - Low back pain Chronic pain Qualifiers: Chronic pain type: chronic pain syndrome Qualified Code(s): G89.4 - Chronic pain syndrome Scoliosis Qualifiers: Scoliosis type: unspecified scoliosis Spinal region: unspecified Qualified Code(s): M41.9 - Scoliosis, unspecified Condition: Good Disposition: HOME, SELF-CARE Instructions: Ice Packs ([facility]), Low Back Pain ([facility]), Muscle Strain ([facility]), Pain Medication Injection ([facility]), Warm Packs ([facility]) Additional Instructions: Use ice and alternate ice and heat. Take the medicine as directed. Call a family doctor to get follow up. Return here for any change with bowel or bladder difficulty, change in the character of the back pain, fever or weight loss or other problems or concerns. Prescriptions: Ibuprofen [Motrin 600 mg Tablet] 600 mg PO Q8HP PRN #90 tablet PRN Reason: Cyclobenzaprine HCl [Flexeril 10 mg Tablet] 5 mg PO TIDP PRN #10 tab PRN Reason: Gabapentin [Neurontin 300 mg Capsule] 300 mg PO TID #90 capsule
[2019-07-25 13:37] VITALS: BP 101/72
== END 2019-07-25 13:30 | disposition home or self-care (01) ==
LOC: ER 11:18
DX: G89.29 Other chronic pain (principal); M41.9 Scoliosis, unspecified; M54.5 Low back pain; Z95.4 Presence of other heart-valve replacement
CPT/HCPCS: 99283; 96372; 81001; 72070; J1885

== ENCOUNTER 2019-11-04 13:06 | Emergency (ER) | payer SELFPAY ==
[2019-11-04 13:17] VITALS: BP 115/72
--- NOTE | 2019-11-04 15:17 | ER Document Report ---
HPI - HPI Time Seen by Provider: 11/04/19 15:06 Notes: 29-year-old male presents emergency room for evaluation of chronic hearing loss that has become worse over the last 3 weeks. Patient states that he has lost hearing in his left ear since July and now is having progressive hearing loss in his right ear. Patient does have an appointment with his primary care doctor as well as an ceo within the next week, he does not know the time or date but he does have a written down at home. Denies any ear pain. Denies fevers, chills, chest pain,palpitations, shortness of breath, dyspnea, nausea, vomiting, diarrhea, abdominal pain, hematuria,blurred vision, double vision, loss of vision, speech changes, LH, dizziness, syncope, headaches, wheezing, ST, URI, neck pain, weakness, bowel or bladder dysfunction, saddle anesthesia, numbness or tingling in bilateral upper or lower extremities equally, muscle paralysis, weakness in bilateral upper or lower extremities equally or rash. MEDICATIONS: I agree with the patient medications as charted by the RN. ALLERGIES: I agree with the allergies as charted by the RN. PAST MEDICAL HISTORY/PAST SURGICAL HISTORY: Reviewed and agree as charted by RN. SOCIAL HISTORY: Reviewed and agree as charted by RN. FAMILY HISTORY: No significant familial comorbid conditions directly related to patient complaint EXAM: Reviewed vital signs as charted by RN. REVIEW OF SYSTEMS:reviewed vital signs by RN CONSTITUTIONAL : Denies fever, chills, or sweats. Denies recent illness. EENT: Bilateral hearing loss. denies eye, ear, throat, or mouth pain or symptoms. Denies nasal or sinus congestion or discharge. Denies throat, tongue, or mouth swelling or difficulty swallowing. CARDIOVASCULAR: Denies chest pain. Denies palpitations or racing or irregular heart beat. Denies ankle edema. RESPIRATORY: Denies cough, cold, or chest congestion. Denies shortness of breath, difficulty breathing, or wheezing. GASTROINTESTINAL: Denies abdominal pain or distention. Denies nausea, vomiting, or diarrhea. Denies blood in vomitus, stools, or per rectum. Denies black, tarry stools. Denies constipation. GENITOURINARY: Denies difficulty urinating, painful urination, burning, frequency, blood in urine, or discharge. MUSCULOSKELETAL: Denies back or neck pain or stiffness. Denies joint pain or swelling. SKIN: Denies rash, lesions or sores. HEMATOLOGIC : Denies easy bruising or bleeding. LYMPHATIC: Denies swollen, enlarged glands. NEUROLOGICAL: Denies confusion or altered mental status. Denies passing out or loss of consciousness. Denies dizziness or lightheadedness. Denies headache. Denies weakness or paralysis or loss of use of either side. Denies problems with gait or speech. Denies sensory loss, numbness, or tingling. Denies seizures. PSYCHIATRIC: Denies anxiety or stress. Denies depression, suicidal ideation, or homicidal ideation. ALL OTHER SYSTEMS REVIEWED AND NEGATIVE. Dictation was performed using [employer] voice recognition software PHYSICAL EXAMINATION: GENERAL: Well-appearing, well-nourished and in no acute distress. HEAD: Atraumatic, normocephalic. EYES: Pupils equal round and reactive to light, extraocular movements intact, sclera anicteric, conjunctiva are normal. ENT: Nares patent, oropharynx clear without exudates. Moist mucous membranes. External canal without erythema induration, external anatomy of bilateral ears normal, TM intact pearly [place] NECK: Normal range of motion, supple without lymphadenopathy LUNGS: Breath sounds clear to auscultation bilaterally and equal. No wheezes rales or rhonchi. HEART: Regular rate and rhythm without murmurs ABDOMEN: Soft, nontender, nondistended abdomen. No guarding, no rebound. No masses appreciated. Musculoskeletal: Normal range of motion, no pitting or edema. No cyanosis. NEUROLOGICAL: Cranial nerves grossly intact. Normal speech, normal gait. Normal sensory, motor exams PSYCH: Normal mood, normal affect. SKIN: Warm, Dry, normal turgor, no rashes or lesions noted. c - REPRODUCTIVE Reproductive: DENIES: : Past Medical History - General Information source: Patient - Social History Smoking Status: Current Every Day Smoker Family History: Reviewed & Not Pertinent Renal/ Medical History: Denies: Hx Peritoneal Dialysis Psychiatric Medical History: Denies: Hx Depression Past Surgical History: Reports: Hx Cardiac Surgery - valve replacment, Other - coiling of intracranial aneurysm - Immunizations Hx Diphtheria, Pertussis, Tetanus Vaccination: No Vertical Provider Document - CONSTITUTIONAL Agree With Documented VS: Yes Exam Limitations: No Limitations General Appearance: WD/WN - INFECTION CONTROL TRAVEL OUTSIDE OF THE [place] IN LAST 30 DAYS: No Course - Re-evaluation Re-evalutation: 11/04/19 15:18 Afebrile vital stable no distress. Repeat vitals with a heart rate of 90 and pulse ox 100% on room air. Ear exam was completely normal, patient does have decreased hearing loss though he does need to be evaluated by an ceo. Patient states that he thinks his chronic hearing loss may related to having endocarditis back in July 2019. He already has an appointment for an a udiologist as well as his primary care provider within the next week he believes. after performing a Medical Screening Examination, I estimate there is LOW risk for malignant otitis media, mastoiditis, MENINGITIS, or ACUTE CORONARY SYNDROME, thus I consider the discharge disposition reasonable. I have reevaluated this patient multiple times and no significant life threatening changes are noted. The patient and I have discussed the diagnosis and risks, and we agree with discharging home to follow-up on an outpatient basis with the understanding that symptoms and presentations can change. We also discussed returning to the Emergency Department immediately if new or worsening symptoms occur. We have discussed the symptoms which are most concerning (e.g., high fevers, confusion) that necessitate immediate return. - Vital Signs Vital signs: Temp Pulse Resp BP Pulse Ox 98.9 F 106 H 16 115/72 98 11/04/19 13:16 11/04/19 13:16 11/04/19 13:16 11/04/19 13:16 11/04/19 13:16 Discharge - Discharge Clinical Impression: chronic hearing loss, Normal ear exam Condition: Stable Disposition: HOME, SELF-CARE Additional Instructions: Your ear anatomy was normal today on examination. Please go to your already scheduled audiology or ENT appointment and your primary care appointment which is in the next week. Please contact the following office for an appointment tomorrow or return imm ediately if there are any other concerns [facility] Address: [address] [place] [id number] Return immediately for any new or worsening symptoms. Follow up with primary care provider, call tomorrow to make followup appointment. Referrals: [facility], [NO LOCAL MD] - Follow up as needed
== END 2019-11-04 15:21 | disposition home or self-care (01) ==
LOC: ER 13:06
DX: H91.93 Unspecified hearing loss, bilateral (principal); F17.200 Nicotine dependence, unspecified, uncomplicated
CPT/HCPCS: 99283